=== PATIENT | female | born 1970 | race Caucasian/White ===

== ENCOUNTER 2020-04-13 00:43 | Emergency (ER) | payer OTHER, SELFPAY ==
--- NOTE | ~2020-04-13 | XR_ITS ---
XR foot RT min 3V 04/13/2020 01:22 Indication: Right foot pain Procedure: 4 views right foot Comparison: 04/07/2016 Findings: No acute fracture or traumatic malalignment. Lisfranc joint intact. No significant soft tis camelia abnormality. No radiopaque foreign bodies. Small degenerative calcaneal enthesophyte. Mild degene rative changes of the talonavicular joint. Impression: 1: No acute fracture. Reviewed, dictated and finalized at location A. ETIC TESTING TECHNICIAN Impression: 1: No acute fracture.
[2020-04-13 00:56] VITALS: BP 153/84; PULSE 87; RESP 18; TEMP 37.1; O2SAT 96
--- NOTE | 2020-04-13 00:59 | ED.GENADULT ---
HPI - General Adult General Chief complaint: Extremity Injury, Lower Stated complaint: injury to right foot Time Seen by Provider: 04/13/20 00:46 Source: RN notes reviewed History of Present Illness HPI narrative: Patient presents to emergency department from home for right foot pain. Patient states this evening her foot had been stuck in a bag and she tried to free it from the bag and kicking her foot out had kicked a metal bed frame. States his pain is across the top of the right foot as well as around the base of the fifth toe with swelling and ecchymosis present. States she took ibuprofen approximately 2 hours ago drove her self to the emergency department she denies any other trauma or injury denies any numbness or tingling Related Data Home Medications Medication Instructions Recorded Confirmed amlodipine 2.5 mg tablet 2.5 mg PO DAILY 04/09/19 citalopram 10 mg tablet 10 mg PO DAILY 04/09/19 ibuprofen 200 mg tablet 200 mg PO Q6H PRN 04/09/19 trazodone 50 mg tablet 50 mg PO BID 04/09/19 Allergies Allergy/AdvReac Type Severity Reaction Status Date / Time NSAIDS (Non-Steroidal Allergy Unknown UNKNOWN Verified 04/13/20 00:46 Anti-Inflamma Review of Systems Review of Systems: Narrative: Gen.: Denies fevers or chills Musculoskeletal: See HPI Neuro: Denies numbness, tingling, weakness Skin: Denies rash Endo: Denies DM PMFSH Past Medical History Medical History (Updated 04/13/20 @ 01:22 by Yaron Sims DO) SLAP (superior glenoid labrum lesion) Family History Family History Father Family history of cataracts Hypertension Cerebrovascular accident Family history of coronary artery disease Grandparent Hypertension Family history of alcoholism Family history of congestive heart failure Diabetes mellitus Mother Hypertension Cerebrovascular accident Sibling Family history of attention deficit hyperactivity disorder (ADHD) Other Family history of malignant neoplasm Social History Social History Smoking status: Former smoker Smoking end date: 05/22/16 Alcohol intake: current Exam Narrative: Exam Narrative: APPEARANCE: No acute distress, nontoxic, resting in bed Eyes: EOMI HEENT: Normocephalic, atraumatic, RESPIRATORY: No respiratory distress MUSCULOSKELETAl: Tender palpation over dorsal aspect of right foot with no swelling or ecchymosis there is ecchymosis of the fifth toe with tenderness present, the remainders of the toes are normal appearance there is no tenderness of the ankle dorsalis pedis pulse 2+ neurovascular intact NEURO: Awake and alert. Following commands, speech normal, no focal deficits SKIN:: Warm, dry. Normal Color no rash or lesions Course Course Emergency Course: Discussed with patient results of workup and diagnosis. Discussed need for follow-up with primary care, proper use of medication, and reasons to return to the emergency department. Patient understands and agrees to current treatment plan Vital Signs Vital signs: Vital Signs Temperature 98.8 F 04/13/20 00:56 Pulse Rate 87 04/13/20 00:56 Respiratory Rate 18 04/13/20 00:56 Blood Pressure 153/84 H 04/13/20 00:56 Pulse Oximetry 96 04/13/20 00:56 Temperature 98.8 F 04/13/20 00:56 Pulse Rate 87 04/13/20 00:56 Respiratory Rate 18 04/13/20 00:56 Blood Pressure 153/84 H 04/13/20 00:56 Pulse Oximetry 96 04/13/20 00:56 Medical Decision Making Vital Signs Vital Signs: Vital Signs Temperature 98.8 F 04/13/20 00:56 Pulse Rate 87 04/13/20 00:56 Respiratory Rate 18 04/13/20 00:56 Blood Pressure 153/84 H 04/13/20 00:56 Pulse Oximetry 96 04/13/20 00:56 Temperature 98.8 F 04/13/20 00:56 Pulse Rate 87 04/13/20 00:56 Respiratory Rate 18 04/13/20 00:56 Blood Pressure 153/84 H 04/13/20 00:56 Pulse Oximetry 96 04/13/20 00:56 Im
[2020-04-13 02:05] VITALS: BP 165/93; PULSE 86; RESP 18; TEMP 36.6; O2SAT 95
== END 2020-04-13 02:07 | disposition home or self-care (01) ==
PROVIDERS: Emergency Provider Emergency Medicine; PCP Family Medicine
DX: S90.31XA Contusion of right foot, initial encounter (principal); Z87.891 Personal history of nicotine dependence; W22.03XA Walked into furniture, initial encounter
CPT/HCPCS: 73630; 99283

== ENCOUNTER 2020-05-27 18:12 | Emergency (ER) | payer OTHER, SELFPAY ==
--- NOTE | ~2020-05-27 | CT_ITS ---
EXAMINATION: CT cervical spine wo con EXAM DATE: 05/27/2020 18:51 INDICATION: Head injury. TECHNIQUE: Spiral CT of the cervical spine was performed without contrast. Axial images were reviewe d. Coronal and sagittal reformatted images were also reviewed. The dose-length product (DLP) for thi s examination was 375.85 mGy-cm. The exposure was tailored according to patient size (auto mA exposu re control), and iterative reconstruction (ASIR) was used as additional dose reduction technique. ere is no prior study for comparison. FINDINGS: There is no evidence of acute cervical fracture. The odontoid process is intact. Pre-dens space is normal. Prevertebral soft tissue is normal. There are no soft tissue abnormalities identi fied. There is no disc space widening or traumatic vertebral body subluxation suspected. The 20 A detailed level by level evaluation of spondylosis can be added as addendum if requested. IMPRESSION: 1. No acute cervical fracture. Reviewed, dictated and finalized at location A. LLARY SERVICES MANAGER
--- NOTE | ~2020-05-27 | CT_ITS ---
EXAMINATION: CT brain wo con EXAM DATE: 05/27/2020 18:51 INDICATION: Fall, headache. Head injury. TECHNIQUE: Spiral CT of the head was performed without contrast. Axial, coronal and sagittal images were reviewed. The dose-length product (DLP) for this examination was 605.33 mGy-cm. The exposure w as tailored according to patient size, and iterative reconstruction (ASIR) was used as additional dos e reduction technique. There is no prior study for comparison. FINDINGS: There is no acute intraparenchymal hemorrhage. No evidence of intraparenchymal brain mass lesion. No evidence of acute infarction. There is no mass effect or midline shift. The ventricles are normal in size. There are no extra-axial collections. There are no acute calvarial fractures. T he orbits are unremarkable. Left frontal subcutaneous gas, scalp laceration. The visualized sinuses and mastoid air cells are well aerated. IMPRESSION: 1. No acute intracranial findings. 2. Left frontal scalp laceration. Reviewed, dictated and finalized at location A. ICE VOLUNTEER COORDINATOR
[2020-05-27 18:27] VITALS: BP 222/105; PULSE 76; RESP 17; TEMP 36.8; O2SAT 97
[2020-05-27] MEDS: ACETAMINOPHEN 500 MG TABLET 1000 MG PO (18:34)
--- NOTE | 2020-05-27 18:48 | ED.HEATRA ---
HPI - Head Injury General Chief complaint: Wound/Laceration <LUCI Solomon Last Filed: 05/27/20 20:29> Stated complaint: fall, lac above left eye <LUCI Solomon Last Filed: 05/27/20 20:29> Time Seen by Provider: 05/27/20 18:13 <LUCI Solomon Last Filed: 05/27/20 20:29> Source: patient <LUCI Solomon Last Filed: 05/27/20 20:29> Mode of arrival: ambulatory <LUCI Solomon Last Filed: 05/27/20 20:29> Limitations: no limitations <LUCI Solomon Last Filed: 05/27/20 20:29> History of Present Illness HPI Narrative: Patient is a 49-year-old male who presents to emergency department for evaluation of head injury that occurred just prior to arrival patient fell back in a chair and had a heavy piece of metal fall onto the face striking the head has since felt nauseous denies loss of consciousness and notes severe headache and nausea also noting neck pain patient has not taken anything for symptoms on arrival is resting in mild pain distress patient has laceration to the left brow patient notes her tetanus to be up-to-date <LUCI Solomon Last Filed: 05/27/20 20:29> Related Data Home medications: Home Medications Medication Instructions Recorded Confirmed amlodipine 2.5 mg tablet 2.5 mg PO DAILY 04/09/19 citalopram 10 mg tablet 10 mg PO DAILY 04/09/19 ibuprofen 200 mg tablet 200 mg PO Q6H PRN 04/09/19 trazodone 50 mg tablet 50 mg PO BID 04/09/19 <LUCI Solomon Last Filed: 05/27/20 20:29> Allergies/Adverse reactions: Allergies Allergy/AdvReac Type Severity Reaction Status Date / Time NSAIDS (Non-Steroidal Allergy Unknown UNKNOWN Verified 05/27/20 18:31 Anti-Inflamma <LUCI Solomon Last Filed: 05/27/20 20:29> Review of Systems Review of Systems: All systems reviewed & are unremarkable except as noted in HPI and below <LUCI Solomon Last Filed: 05/27/20 20:29> PMFSH Past Medical History Medical History: Medical History (Updated 05/27/20 @ 20:29 by Rickey Titus PA-C) Diabetes mellitus SLAP (superior glenoid labrum lesion) <Rickey Titus PA-C - Last Filed: 05/27/20 20:29> Family History Family History: Family History Father Family history of cataracts Hypertension Cerebrovascular accident Family history of coronary artery disease Grandparent Hypertension Family history of alcoholism Family history of congestive heart failure Diabetes mellitus Mother Hypertension Cerebrovascular accident Sibling Family history of attention deficit hyperactivity disorder (ADHD) Other Family history of malignant neoplasm <Rickey Titus PA-C - Last Filed: 05/27/20 20:29> Social History Social History: Social History (Updated 05/27/20 @ 18:51 by Rickey Titus PA-C) Smoking status: Current every day smoker Smoking end date: 05/22/16 Alcohol intake: current Gender identity (if verbalized by the patient): Female <LUCI Solomon Last Filed: 05/27/20 20:29> Exam Narrative: Exam Narrative: GENERAL: Well-appearing, well-nourished, and in no acute distress. HEAD: Normocephalic, contusions of the forehead and left brow with small half centimeter linear laceration to the left brow EYES: PERRLA and EOMI. ENT: Nares clear, no rhinorrhea or epistaxis. Mucous membranes moist. NECK: Supple. No adenopathy or masses. CHEST: Clear to auscultation. No respiratory distress. No wheezes rales or rhonchi HEART: Regular rate and rhythm. No murmur heard. EXTREMITIES: Normal range of motion. No edema. C-spine tenderness to palpation no thoracic or lumbar tenderness SKIN: Warm, dry, no rash. NEURO: No focal deficits. Alert and oriented x3. Cranial nerves II through XII grossly intact. Normal speech PSYCH: Normal mood and affect. <Rickey Titus PA-C - Last
[2020-05-27 19:06] VITALS: BP 190/90; PULSE 69; RESP 15; O2SAT 98
[2020-05-27 20:40] VITALS: BP 168/72; PULSE 68; RESP 16; O2SAT 99
== END 2020-05-27 20:41 | disposition home or self-care (01) ==
PROVIDERS: Emergency Provider Emergency Medicine; PCP Family Medicine
DX: S01.112A Laceration without foreign body of left eyelid and periocular area, initial encounter (principal); S00.83XA Contusion of other part of head, initial encounter; S16.1XXA Strain of muscle, fascia and tendon at neck level, initial encounter; E11.9 Type 2 diabetes mellitus without complications; F17.200 Nicotine dependence, unspecified, uncomplicated; W20.8XXA Other cause of strike by thrown, projected or falling object, initial encounter
CPT/HCPCS: 12011; 70450; 72125; 99284; A9270

== ENCOUNTER → 2021-03-24 09:11 | Outpatient (CLI) | payer OTHER, SELFPAY ==
[2021-03-24 17:30] LABS: SARS-CoV-2 RNA PCR Negative
== END ==
PROVIDERS: PCP Family Medicine; Visit Provider Family Medicine
DX: R05.9 Cough, unspecified (principal); Z20.822 Contact with and (suspected) exposure to COVID-19
CPT/HCPCS: C9803; U0003; U0005

== ENCOUNTER 2021-10-01 15:44 | Emergency (ER) | payer OTHER, SELFPAY ==
--- NOTE | ~2021-10-01 | XR_ITS ---
EXAMINATION: XR lumbar spine 2-3V DATE: 10/01/2021 16:10 INDICATION: Low back pain. TECHNIQUE: 3 views of lumbar spine were obtained. COMPARISON: Lumbar spine radiograph 11/17/2010 FINDINGS: There is 6 degrees levocurvature of lumbar spine. Vertebral body heights are normal. There is mildly decreased disc height at L1-L2 and L2-L3. There are endplate osteophytes at multiple levels . There is multilevel mild facet joint osteoarthritis. IMPRESSION: 1. Mild lumbar spondylosis. Reviewed, dictated and finalized at location A. IMPRESSION: 1. Mild lumbar spondylosis.
[2021-10-01 15:49] VITALS: BP 183/102; PULSE 96; RESP 16; TEMP 36.3; O2SAT 100
--- NOTE | 2021-10-01 15:50 | ED.BACK ---
HPI - Back Pain/Injury General Chief Complaint: Back Pain/Injury Stated Complaint: BACK PAIN Time Seen by Provider: 10/01/21 15:50 Source: patient and RN notes reviewed Mode of arrival: ambulatory Limitations: no limitations History of Present Illness HPI Narrative: 51-year-old female presented for complaint of mid lower back pain for at least 2 weeks. Denies injury. She states she has pain with sitting, standing, laying etc. Pain is described as sharp, constant, rates 8 out of 10. She endorses a history of diabetes and takes gabapentin for neuropathy, also taking Tylenol and ibuprofen without relief in symptoms. She denies saddle paresthesia, numbness, tingling, or weakness of the lower extremities. She states she has been walking differently but attributes it to the pain. Denies loss of bowel or bladder. History of cervical and ovarian cancer Related Data Home Medications Medication Instructions Recorded Confirmed amlodipine 2.5 mg tablet 2.5 mg PO DAILY 04/09/19 citalopram 10 mg tablet 10 mg PO DAILY 04/09/19 trazodone 50 mg tablet 50 mg PO BID 04/09/19 alprazolam 10/01/21 gabapentin 10/01/21 Allergies Allergy/AdvReac Type Severity Reaction Status Date / Time NSAIDS (Non-Steroidal Allergy Unknown UNKNOWN Verified 05/27/20 18:31 Anti-Inflamma Review of Systems Review of Systems: CONSTITUTIONAL: Denies body aches, fever, chills, or sweats. EYES: Denies visual changes, redness, or discharge. ENT: Denies rhinorrhea, congestion, sore throat, or otalgia. CARDIOVASCULAR: Denies chest pain, palpitations, or edema. RESPIRATORY: Denies cough or dyspnea. GASTROINTESTINAL: Denies abdominal pain, nausea, vomiting, or diarrhea. GENITOURINARY: Denies dysuria or hematuria. SKIN: Denies rash, itching, or wounds. MUSCULOSKELETAL: Denies myalgia. NEUROLOGIC: denies numbness, tingling, or weakness, dizziness All systems reviewed & are unremarkable except as noted in HPI and below PMFSH Past Medical History Medical History Diabetes mellitus SLAP (superior glenoid labrum lesion) Family History Family History Father Family history of cataracts Hypertension Cerebrovascular accident Family history of coronary artery disease Grandparent Hypertension Family history of alcoholism Family history of congestive heart failure Diabetes mellitus Mother Hypertension Cerebrovascular accident Sibling Family history of attention deficit hyperactivity disorder (ADHD) Other Family history of malignant neoplasm Social History Social History Smoking status: Current every day smoker Smoking end date: 05/22/16 Alcohol intake: current Gender identity (if verbalized by the patient): Female Comments At time of signature, I have reviewed and agree with nursing past medical, surgical, social and family history unless otherwise noted. Please see nursing chart for further information. There is no relevant family history pertinent to the presenting complaint Exam Narrative: GENERAL: Well-appearing, appears in pain HEAD: Normocephalic, atraumatic. EYES: EOMI. ENT: Mucous membranes pink and moist. No rhinorrhea. NECK: Normal AROM. Supple. CHEST: No respiratory distress. Clear to auscultation. HEART: Regular rate and rhythm. No murmur appreciated. Normal peripheral pulses. ABDOMEN: Soft, nontender, nondistended, normal active bowel sounds. MUSCULOSKELETAL: No bony tenderness. EXTREMITIES: Normal range of motion. No edema. SKIN: Warm, dry, no rash. Capillary refill normal. Normal skin turgor. NEURO:No vertebral point tenderness to L-spine, endorses tenderness to paraspinal region of L-spine. No focal deficits. Alert and oriented x3. Strength 5/5 bilateral lower extremities. Reflexes 2+ patellar. Heel to melendez intact bilaterally. A
[2021-10-01 16:38] VITALS: BP 180/108
== END 2021-10-01 16:39 | disposition home or self-care (01) ==
PROVIDERS: Emergency Provider Nurse Practitioner Family; PCP Family Medicine
DX: M54.50 Low back pain, unspecified (principal); F17.200 Nicotine dependence, unspecified, uncomplicated; E11.9 Type 2 diabetes mellitus without complications; Z85.41 Personal history of malignant neoplasm of cervix uteri; Z85.43 Personal history of malignant neoplasm of ovary
CPT/HCPCS: 72100; 99213; G0463

== ENCOUNTER 2025-01-01 14:42 | Emergency (ER) | payer OTHER, SELFPAY ==
--- NOTE | ~2025-01-01 | XR_ITS ---
HISTORY: estuardo hip pain COMPARISON: None TECHNIQUE: 2 views of the bilateral hips along with an AP view of the pelvis FINDINGS: No acute fracture or dislocation is identified. Superior lateral sclerosis of the bilateral femoral acetabular joint spaces (left greater than right) are present consistent with osteoarthritis. Degenerative disease within the visualized portion of the lower lumbar spine. IMPRESSION: Degenerative disease, without acute fracture. Reviewed, dictated and finalized at location A.
--- NOTE | ~2025-01-01 | CT_ITS ---
EXAMINATION: CT thoracic lumbar wo con DATE: 01/01/2025 16:08 CDT INDICATION: Mid back pain TECHNIQUE: Computed tomography (CT) of the lumbar spine and thoracic spine was performed without intr avenous contrast. The dose-length product was 646.31 mGy-cm. COMPARISON: None available FINDINGS: Thoracic and lumbar vertebral body heights are within normal limits. No compression fracture. Mild de generative change scattered throughout the thoracic and lumbar spine. Evaluation of the spinal canal contents and bilateral neuroforamen is limited due to CT technique. Mi ld levoconvex curvature of the lumbar spine. IMPRESSION: 1. No compression fracture identified in the thoracic or lumbar spine. 2. Mild degenerative change scattered throughout the thoracic and the lumbar spine. If symptoms persist or worsen, consider an MRI for further assessment. Reviewed, dictated and finalized at location A. IMPRESSION: 1. No compression fracture identified in the thoracic or lumbar spine. 2. Mild degenerative change scattered throughout the thoracic and the lumbar sp ine. If symptoms persist or worsen, consider an MRI for further assessment.
--- OUTSIDE RECORDS SUMMARY | 2025-01-01 14:45 | XMS_ITS | Clinical Summary ---
Author Organization [facility] Address [address] [place] [id number] Care Team Providers Care Development Chemist Name Role Phone Camila Lake MD Primary Care Provider [phone] Social History Tobacco Use Types Packs/Day Years Used Date Smoking Tobacco: Never Assessed Comments Unknown Sex and Gender Information Value Date Recorded Sex Assigned at Not on file Legal Sex Female 4:47 PM CDT Gender Identity Not on file Sexual Orientation Not on file Last Filed Vital Signs Vital Sign Reading Time Taken Comments Blood Pressure 160/100 03/02/2018 3:01 PM CDT Pulse 87 03/02/2018 3:01 PM CDT Temperature - - Respiratory Rate - - Oxygen Saturation - - Inhaled Oxygen Concentration - - Weight 93.4 kg (206 lb) 02/14/2018 4:05 PM CDT Height 162.6 cm (5' 4) 02/14/2018 4:05 PM CDT Body Mass Index 35.36 02/14/2018 4:05 PM CDT Plan of Treatment Health Maintenance Due Date Last Done Comments Cervical Cancer Screening Pa p Smear (Age 30 to 64) Every 3 Years 1970 Colorectal Cancer Screening Colonoscopy (10 Years) 1970 Annual Physical 1973 Hepatitis C 1988 DTaP, Tdap and Td Vaccines ( 1 - Tdap) 1989 Hepatitis B Vaccines (1 of 3 - 19+ 3-dose series) 1989 Cervical Cancer Screening Pa p with HPV Testing (Age 30 to 64) Every 5 Years 2000 Cervical Cancer Screening with HPV 2000 Mammogram Screening 2010 Pneumococcal Vaccine: 50+ Ye ars (1 of 1 - PCV) 2020 Zoster Vaccines (1 of 2) 2020 COVID-19 Vaccine (1 - 2023-2 5 season) 2024 Meningococcal B Vaccine Aged Out No l onger eligible based on patient's age to complete this topic Meningococcal Vaccine Aged Out No christophe rajesh eligible based on patient's age to complete this topic RSV Immunizations Under 20 Months Aged Out No longer eligible based on patient's age to complete this topic Insurance [facility] Care Teams Development Chemist Relationship Specialty Start Date End Date Camila Lake MD [address] [facility] [address] [place] [address] PCP - General FAMILY PRACTICE 03/02/18
--- OUTSIDE RECORDS SUMMARY | 2025-01-01 14:45 | XMS_ITS | Clinical Summary ---
Author Organization [facility] Address [address] [place] [address] Care Team Providers Care Comparative Sociology Professor Name Role Phone Dario Del aCruz MD Primary Care Provider Konstantin Bellamy MD Unavailable [phone] Allergies No known active allergies Medications cyclobenzaprine (FLEXERIL) 10 MG Tablet Take 10 mg by mouth. 10/28/2024 Active Trulicity 0.75 MG/0.5ML Solution Auto-injector 0.75 mg. 11/05/2024 Activ e escitalopram (LEXAPRO) 10 MG Tablet Take 10 mg by mouth daily. 10/31/2024 Active hydrOXYzine (ATARAX) 10 MG Tablet Take 10 mg by mouth. 10/31/2024 Active Lantus SoloStar 100 UNIT/ML Solution Pen-injector 100 Units. 11/05/2024 Activ e Insulin Lispro, 1 Unit Dial, 100 UNIT/ML Solution Pen-injector 100 Units. 11/05/2024 Activ e traZODone (DESYREL) 50 MG Tablet Take 50 mg by mouth nightly. 11/04/2024 Active Encounters Date Type Department Care Team Description 11/28/2024 Telephone [facility] - Cardiology - [address] [place] [address] Jeanie Campos APRN, DYEHOUSE WORKER from Last 3 Months Social History Tobacco Use Types Packs/Day Years Used Date Smoking Tobacco: Never Assessed Comments Unknown Sex and Gender Information Value Date Recorded Sex Assigned at Not on file Legal Sex Female 1:35 PM CDT Gender Identity Not on file Sexual Orientation Not on file Plan of Treatment Health Maintenance Due Date Last Done Comments Hepatitis C Virus (HCV) Screening 1970 Mammogram 1970 TdaP Immunization 1970 Hepatitis B Immunization (1 of 3 - 19+ 3-dose series) 1989 Pap Smear 07/30/1991 Cervical Cancer Screening (CCS) 2000 HPV/Cotest 2000 Cologuard 07/30/2015 Colonoscopy 07/30/2015 Colorectal Cancer Screening 07/30/2015 Immunochemical Fecal Occult Blood 07/30/2015 Pneumococcal Immunization (5 0+ years) (1 of 1 - PCV) 2020 Zoster Immunization (1 of 2) 2020 SARS-COV-2 Immunization (3 - 2023- season) 2024 01/03/2021, 12/13/2020 Influenza Immunization (#1) 2025 Respiratory Syncytial Virus (RSV) Immunization (Adult) (1 - 1-dose 75+ series) 2045 Human Papillomavirus (HPV) Immunization Aged Out No longer eligible b ased on patient's age to complete this topic Meningococcal Immunization (ACWY) Aged Out No longer eligible b ased on patient's age to complete this topic Rotavirus Immunization Aged Out No lo nger eligible based on patient's age to complete this topic Insurance MEDICAID [employer] Care Teams Comparative Sociology Professor Relationship Specialty Start Date End Date Dario Dela Cruz MD [address] [place] [address] PCP - General Internal Medicine 10/29/24 Konstantin Bellamy MD [address] [place] [phone] Consulting Physician Oncology 10/29/24
--- OUTSIDE RECORDS SUMMARY | 2025-01-01 14:45 | XMS_ITS | Clinical Summary ---
Author Organization [facility] Address [address] [facility] [place] [address] Care Team Providers Care Human Services Instructor Name Role Phone Valentin Pacheco MD Primary Care Provider [phone] Source Comments [facility],non-owned Affiliates and Associated Physician Practices is amultiple site organization consisting of ambulatory clinics and hospital sitesin [place], [place], [place] and [place]. This disclosure is being madepursuant to the Care Everywhere program and may not contain all information available regarding this patient. Last updated 18.[facility] Allergies No known active allergies Medications * Be aware that medications may not be up to date on this document. Alwaysverify current medications with the patient. citalopram (CELEXA) 40 MG tablet Take 40 mg by mouth once daily Active traZODone (DESYREL) 50 MG tablet Take 50 mg by mouth at bedtime Active ALPRAZolam (XANAX) 0.5 MG tablet Take 0.5 mg by mouth 3 times daily as needed for Anxiety Active losartan (COZAAR) 50 MG tablet Take 50 mg by mouth once daily Active HYDROcodone-alina taminophen (NORCO) 5-325 MG tablet Take 1 Tab by mouth every 6 hours as needed for Pain 10 Tab 03/19/2016 Active Misc. Devices (CRUTCHES) Use as directed 1 Each 03/19/2016 Active Social History Tobacco Use Types Packs/Day Years Used Date Smoking Tobacco: Never Assessed Comments Unknown Sex and Gender Information Value Date Recorded Sex Assigned at Not on file Legal Sex Female 6:45 PM CDT Gender Identity Not on file Sexual Orientation Not on file Last Filed Vital Signs Vital Sign Reading Time Taken Comments Blood Pressure 115/60 03/19/2016 6:45 PM CDT Pulse 75 03/19/2016 6:45 PM CDT Temperature 36.9 C (98.4 F) 03/19/2016 6:45 PM CDT Respiratory Rate 18 03/19/2016 6:45 PM CDT Oxygen Saturation 98% 03/19/2016 6:4 5 PM CDT Inhaled Oxygen Concentration - - Weight 77.1 kg (170 lb) 03/19/2016 6:45 PM CDT Pt unable to stand Height 162.6 cm (5' 4) 03/19/2016 6:45 PM CDT Body Mass Index 29.18 03/19/2016 6:45 PM CDT Plan of Treatment Health Maintenance Due Date Last Done Comments COLOGUARD (AGES 45-75) - COL ON CA SCREENING 1970 COLON MONITORING 1970 COLONOSCOPY - COLON CA SCREENING 1970 CT COLONOGRAPHY - COLON CA SCREENING 1970 Colorectal Cancer Screening 1970 FIT - COLON CA SCREENING 1970 FLEX SIG - COLON CA SCREENING 1970 LIPID TESTING 1970 MAMMOGRAM 1970 HIV SCREENING 1985 HEPATITIS C SCREENING 07/24/1988 DTAP/TDAP/TD VACCINES (1 - Tdap) 1989 HEPATITIS B VACCINE (1 of 3 - 19+ 3-dose series) 1989 PNEUMOCOCCAL VACCINE 50+ (1 of 1 - PCV) 2020 ZOSTER VACCINE (1 of 2) 2020 COVID-19 VACCINE (1 - 2023-2 5 season) 2024 DEPRESSION SCREENING 05/22/2024 INFLUENZA VACCINE (#1) 2025 HIB VACCINE Aged Out No longer eligi ble based on patient's age to complete this topic HPV VACCINE Aged Out No longer eligi ble based on patient's age to complete this topic MENINGOCOCCAL (Group B) VACC INE SHARED DECISION-MAKING Aged Out No longer eligibl e based on patient's age to complete this topic MENINGOCOCCAL GROUPS A/C/Y/W VACCINE Aged Out No longer eligible b ased on patient's age to complete this topic Insurance [facility] Care Teams Human Services Instructor Relationship Specialty Start Date End Date Valentin Pacheco MD PCP - General Family Medicine 03/19/16
--- OUTSIDE RECORDS SUMMARY | 2025-01-01 14:45 | XMS_ITS | Clinical Summary ---
Author Organization [employer] [facility] Address [address] [place] [address] Care Team Providers Care Maitre D Name Role Phone Valentin Pacheco MD Primary Care Provider Unavail able Allergies No known active allergies Medications amLODIPine (NORVASC) 5 mg tablet Take 1 Tablet (5 mg) by mouth daily. 30 Tablet 1 07/25/2015 Active hydrochlorothia zide (HYDRODIURIL) 12.5 mg tablet Take 12.5 mg by mouth daily. Active losartan (COZAAR) 50 mg tablet Take 1 Tablet (50 mg) by mouth daily. 30 Tablet 5 11/04/2015 Active citalopram (CeleXA) 40 mg tablet Take 1 Tablet (40 mg) by mouth daily at bedtime. 30 Tablet 6 01/27/2016 Active penicillin V potassium (VEETID) 500 mg tablet Take 1 Tablet (500 mg) by mouth 3 times daily. 30 Tablet 0 02/18/2016 Active ALPRAZolam (XANAX) 0.5 mg tablet TAKE ONE TABLET BY MOUTH AT BEDTIME NEEDED FOR ANXIETY 40 Tablet 1 06/13/2016 Active traZODone (DESYREL) 50 mg tablet Take 1 Tablet (50 mg) by mouth daily at bedtime. 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 Gender Identity Not on file Sexual Orientation Not on file Last Filed Vital Signs Vital Sign Reading Time Taken Comments Blood Pressure 132/70 02/18/2016 3:32 PM CDT Pulse 74 02/18/2016 3:32 PM CDT Temperature 36.8 C (98.3 F) 07/25/2015 9:02 PM CONSTRUCTION EQUIPMENT OPERATOR Respiratory Rate 20 07/25/2015 9:02 PM CONSTRUCTION EQUIPMENT OPERATOR Oxygen Saturation 98% 07/26/2015 12:01 AM CONSTRUCTION EQUIPMENT OPERATOR Inhaled Oxygen Concentration - - Weight 81.6 kg (180 lb) 02/18/2016 3:32 PM CDT Height 162.6 cm (5' 4) 02/18/2016 3:32 PM CDT Body Mass Index 30.9 02/18/2016 3:32 PM CDT Plan of Treatment Health Maintenance Due Date Last Done Comments DTAP/TDAP/TD VACCINES (1 - Tdap) 1989 HEPATITIS B VACCINES (1 of 3 - 19+ 3-dose series) 07/20 HPV/Cotest (21-29) 07/30/1991 CERVICAL CANCER SCREENING 2000 HPV/Cotest (30-65) 2000 PAP SMEAR 2000 BREAST CANCER SCREENING 2010 COLORECTAL SCREENING 07/30/2015 Colorectal Cancer Screening 07/30/2015 FIT-DNA Q 3 years 07/30/2015 FIT/FOBT Q 1 year 07/30/2015 Flex Sig/CT Colonography Q 5 years 07/30/2015 ZOSTER VACCINE (1 of 2) 2020 INFLUENZA VACCINE (#1) [address]24 [place] [address] FORMERLY [facility] OPEN ACCESS HMO Care Teams Maitre D Relationship Specialty Start Date End Date Valentin Pacheco MD PCP - General Family Practice 07/06/15
[2025-01-01 14:47] VITALS: BP 245/106; PULSE 89; RESP 16; TEMP 36.8; O2SAT 98
--- NOTE | 2025-01-01 14:57 | ED.BACK ---
HPI - Back Pain/Injury General Chief Complaint: Back Pain/Injury <Sagrario OneillMagdy Jarrell, TETRYL BOILING TUB OPERATOR - Last Filed: 01/01/25 16:23> Stated Complaint: BACK PAIN <Sagrariofred Jarrell TETRYL BOILING TUB OPERATOR - Last Filed: 01/01/25 16:23> Time Seen by Provider: 01/01/25 14:55 <Sagrariofred Jarrell TETRYL BOILING TUB OPERATOR - Last Filed: 01/01/25 16:23> Focused HPI: Patient is a 54-year-old female who presents to the ER with severe back pain. She reports the pain started approximately 2-3 weeks ago but has progressively gotten worse. Patient is unsure whether she injured her back. She reports ?I think this is more muscle than bones. Patient also endorses bilateral hip pain and bilateral femur pain. She endorses a history of high blood pressure and diabetes, but reports she has not taken her medications today. Patient also endorses right foot numbness that has been present for 2-3 months. GENERAL: Well-appearing, well-nourished, and in acute distress d/t pain. HEAD: Normocephalic, atraumatic. CHEST: Clear to auscultation. ?No respiratory distress. HEART: Regular rate and rhythm.? NEURO: ?Alert and oriented x3. Patient screened in triage and initial orders placed.? ?Additional care and disposition to be based upon?diagnostic testing and treatment. <Sagrariofred Jarrell, TETRYL BOILING TUB OPERATOR - Last Filed: 01/01/25 16:23> Focused HPI: Patient is a 54-year-old female who presents to the ER with severe back pain. She reports the pain started approximately 2-3 weeks ago but has progressively gotten worse. Patient is unsure whether she injured her back. She reports ?I think this is more muscle than bones. Patient also endorses bilateral hip pain and bilateral femur pain. She endorses a history of high blood pressure and diabetes, but reports she has not taken her medications today. Patient also endorses right foot numbness that has been present for 2-3 months. GENERAL: Well-appearing, well-nourished, and in acute distress d/t pain. HEAD: Normocephalic, atraumatic. CHEST: Clear to auscultation. ?No respiratory distress. HEART: Regular rate and rhythm.? NEURO: ?Alert and oriented x3. Patient screened in triage and initial orders placed.? ?Additional care and disposition to be based upon?diagnostic testing and treatment. <Shreya Pleitez PA-C - Last Filed: 01/01/25 23:34> Source: patient <Shreya Pleitez PA-C - Last Filed: 01/01/25 23:34> Mode of arrival: ambulatory <Shreya Pleietz PA-C - Last Filed: 01/01/25 23:34> Limitations: no limitations <Shreya Pleitez PA-C - Last Filed: 01/01/25 23:34> History of Present Illness HPI Narrative: Agree with above HPI. Patient reports pain has been ongoing for 2 months. She has not taken anything for the pain as she reports Tylenol and ibuprofen do not help her. Worse with movement. Denies bowel or bladder incontinence, saddle anesthesia. Patient's blood pressure was noted to be very elevated here. She reports she is on antihypertensive medication, but has not taken this in several days. Per med rec, patient has previously been on losartan, but this does not appear to have been filled since January of 2024. Denies chest pain, shortness breath, headache, blurry vision, dizziness, lightheadedness. <Shreya Pleitez PA-C - Last Filed: 01/01/25 23:34> Related Data Home Medications: Home Medications ?Medication ?Instructions ?Recorded ?Confirmed ?Last Taken ?Type amlodipine 2.5 mg tablet 2.5 mg PO DAILY 04/09/19 Unknown History citalopram 10 mg tablet (Celexa) 10 mg PO DAILY 04/09/19 Unknown History trazodone 50 mg tablet 50 mg PO BID 04/09/19 Unknown History alprazolam 0.5 mg tablet 10/01/21 Unknown History gabapentin 300 mg capsule 10/01/21 Unknown History <Sagrario Jarrell APRN - Last Filed: 01/01/25 16:23> Allergies/Adverse Reactions: Allergies Allergy/AdvReac Type Severity Reaction Status Date / Time No Known Allergies Allergy Verified 01/01/25 14:51 <Sagrario Jarrell APRN - Last Filed: 01/01/25 16:23> Review of Systems Review of Systems: All systems reviewed & are unremarkable except as noted in HPI. <Shreya Pleitez PA-C - Last Filed: 01/01/25 23:34> All systems reviewed & are unremarkable except as noted in HPI and below <Shreya Pleitez PA-C - Last Filed: 01/01/25 23:34> PMFSH Past Medical History Medical History: Medical History Diabetes mellitus SLAP (superior glenoid labrum lesion) <Sagrario Jarrell APRN - Last Filed: 01/01/25 16:23> Family History Family History: Family History Father Family history of cataracts Hypertension Cerebrovascular accident Family history of coronary artery disease Grandparent Hypertension Family history of alcoholism Family history of congestive heart failure Diabetes mellitus Mother Hypertension Cerebrovascular accident Sibling Family history of attention deficit hyperactivity disorder (ADHD) Other Family history of malignant neoplasm <Sagrario Jarrell APRN - Last Filed: 01/01/25 16:23> Social History Social History: Social History Smoking status: Current every day smoker Smoking end date: 05/22/16 Alcohol intake: current Gender identity (if verbalized by the patient): Female <Sagrario Jarrell APRN - Last Filed: 01/01/25 16:23> Exam Narrative: GENERAL: Well appearing, well-nourished, non-toxic, in no acute distress. HEAD: Normocephalic, atraumatic. EYES: L eye strabismus. PERRL/EOMI RESPIRATORY: Airway patent, respirations nonlabored. Clear to auscultation bilaterally, no rales, rhonchi, wheezing. CARDIOVASCULAR: Regular rate and rhythm without murmurs, rubs, or gallops. Peripheral pulses intact. ABDOMINAL: Soft, no tenderness throughout abdomen, nondistended. Normoactive BS. MUSCULOSKELETAL: Moves all extremities. No gross deformities. Diffuse tenderness throughout lumbosacral region. No significant midline spinal tenderness. No palpable bony deformities or step offs. Sensation intact. SKIN: Warm, dry, normal color. NEURO: A&O X3. Speech clear. Cranial nerves II-XII grossly intact. Steady gait. No ataxic movements. No focal deficits. PSYCHIATRIC: Appropriate mood and affect. Normal interaction. <Shreya Pleitez PA-C - Last Filed: 01/01/25 23:34> Course Vital Signs Vital signs: Vital Signs Temperature 98.2 F 01/01/25 14:47 Pulse Rate 89 01/01/25 14:47 Respiratory Rate 16 01/01/25 14:47 Blood Pressure 245/106 H 01/01/25 14:47 Pulse Oximetry 98 01/01/25 14:47 Oxygen Delivery Room Air 01/01/25 14:47 Temperature 98.2 F 01/01/25 14:47 Pulse Rate 89 01/01/25 14:47 Respiratory Rate 16 01/01/25 14:47 Blood Pressure 222/118 H 01/01/25 21:14 Pulse Oximetry 98 01/01/25 14:47 Oxygen Delivery Room Air 01/01/25 14:47 <Sagrario Jarrell, TETRYL BOILING TUB OPERATOR - Last Filed: 01/01/25 16:23> Vital Signs Temperature 98.2 F 01/01/25 14:47 Pulse Rate 89 01/01/25 14:47 Respiratory Rate 16 01/01/25 14:47 Blood Pressure 245/106 H 01/01/25 14:47 Pulse Oximetry 98 01/01/25 14:47 Oxygen Delivery Room Air 01/01/25 14:47 Temperature 98.2 F 01/01/25 14:47 Pulse Rate 89 01/01/25 14:47 Respiratory Rate 16 01/01/25 14:47 Blood Pressure 222/118 H 01/01/25 21:14 Pulse Oximetry 98 01/01/25 14:47 Oxygen Delivery Room Air 01/01/25 14:47 <Shreya Pleitez PA-C - Last Filed: 01/01/25 23:34> MDM - Back Pain/Injury MDM Narrative Medical decision making narrative: Patient presented to ED with 2 month history of lower back pain, worse with movement. Patient notably hypertensive upon arrival. She does have history of hypertension and does admit to being noncompliant with her medications. Initially told me that she had not taken her medications for the past 2 days, but later reported that she does not know the last time she actually took her medications or checked her blood pressure. She is asymptomatic regarding this. Denying any red flag symptoms. Denies chest pain, shortness of breath, headache, vision changes, dizziness, lightheadedness. She is neurologically intact otherwise. There is no evidence of cord compression or cauda equina. Symptoms seem most likely musculoskeletal, sciatica type picture. Laboratory studies were obtained with minimal leukocytosis of 12.2. CMP unremarkable. UA with 6-10 WBC, however patient denies urinary complaints. CT scan of thoracic and lumbar spine showing some degenerative changes, but no acute fracture or spinal malalignment. X-ray of bilateral hips/pelvis was also without acute fracture. Patient was given Toradol and prednisone in triage. Upon my evaluation, she is still reporting pain. She was given [place] and Robaxin. On re-evaluation, she is feeling much improved. Back pain is significantly improved. She has been ambulatory around the ED without issue. Remains neurologically intact. States she is ready to go home. Discussed likelihood of musculoskeletal etiology/muscular strain. No evidence to suggest symptoms are from GI or source. No abdominal pain, nausea, vomiting, diarrhea. Denies urinary complaints. There is trace amount of WBC on UA, this was sent for culture. Personal review of thoracic/lumbar spine CT does not show any obvious aortic pathology. Strong peripheral pulses. No weakness of extremities. Attempted to recheck patient's blood pressure after pain control. This was attempted multiple times with room blood pressure monitor and unable to obtain accurate reading. Patient becoming very frustrated. States she is just ready to go home. States she does not care about her blood pressure. States this is not why she is here. We did obtain a manual blood pressure which was very slightly improved from initial BP, but still notably elevated to 222/118. Patient remains asymptomatic regarding blood pressure. I advised that I would like to monitor her in the ED longer and did not feel comfortable discharging her with a blood pressure that elevated regardless that she was asymptomatic. Patient was initially agreeable, however was witnessed ambulating out of the facility prior to any further workup or being discharged. She was witnessed ambulating with a steady gait. She did not inform staff or myself that she was leaving. This will be considered an elopement. I did emphasize to patient during our conversations prior to her eloping that she needs to have very close follow-up with her primary care doctor and that she needs to be consistent with her medications. Patient was unable to tell me even what blood pressure medication she was supposed to be taking. She states she had other medications at home but was unable to tell me what these were even for. I did encourage patient to take accountability and control of her medical problems. Again, patient eloped from facility without further workup or BP management. <Shreya Pleitez PA-C - Last Filed: 01/01/25 23:34> Medical Records Attestation: I reviewed the patient's medical records. <Shreya Pleitez PA-C - Last Filed: 01/01/25 23:34> Lab Data Attestation: I reviewed the patient's lab results. <Shreya Pleitez PA-C - Last Filed: 01/01/25 23:34> Result diagrams: 01/01/25 15:02 01/01/25 15:02 <Sagrario Jarrell APRN - Last Filed: 01/01/25 16:23> Labs: Lab Results 01/01/25 01/01/25 01/01/25 Range/Units 15:02 15:15 17:30 WBC 12.2 H (4.5-10.0) K/mm3 RBC 5.59 H (4.2-5.4) M/mm3 Hgb 14.9 (12.0-15.0) g/dL Hct 47.0 (37.0-47.0) % MCV 84.1 (80-100) fl MCH 26.7 (26-34) pg MCHC 31.7 L (32-36) g/dl RDW 14.8 H (11.5-14.5) % Plt Count 350 (150-375) k/mm3 MPV 9.1 (7.4-10.4) fl Immature Gran % (Auto) Not Reportable Neut % (Auto) Not Reportable Lymph % (Auto) Not Reportable Treasure % (Auto) Not Reportable Eos % (Auto) Not Reportable Baso % (Auto) Not Reportable Lymph # (Auto) Not Reportable Treasure # (Auto) Not Reportable Eos # (Auto) Not Reportable Baso # (Auto) Not Reportable Abs Immat Gran (auto) Not Reportable Absolute Neuts (auto) Not Reportable Absolute Nucleated RBC Not Reportable Total Counted 100 Neutrophils % (Manual) 68 (46-73) % Band Neutrophils % 0 (0-6) % Lymphocytes % (Manual) 31.0 (18-44) % Eosinophils % (Manual) 1 (0-4) % Nucleated RBC % Not Reportable Abs Neuts (Manual) 8.29 H (1.3-6.7) K/mm3 Abs Lymphs (Manual) 3.78 (1.1-4.5) K/mm3 Absolute Eos (Manual) 0.12 (0.02-0.50) K/mm3 Platelet Estimate Adequate (Adequate) Hypochromasia 1+ Schistocytes None seen Sodium 138 (137-145) mmol/L Potassium 3.7 (3.4-5.0) mmol/L Chloride 103 (98-107) mmol/L Carbon Dioxide 24 (22-30) mmol/L Anion Gap 11 (4-12) mmol/L BUN 11 (7-17) mg/dL Creatinine 0.70 (0.7-1.0) mg/dL Estim Creat Clear Calc 65 ml/min Estimated GFR > 60 (59 - ) Glucose 182 H (65-110) mg/dL POC Capillary Glucose 189 H (65-105) mg/dl Calcium 9.7 (8.4-10.2) mg/dL Total Bilirubin 0.5 (0.2-1.3) mg/dL AST 18 (14-36) U/L ALT 11 (6-35) U/L Alkaline Phosphatase 96 (38-126) U/L Total Protein 8.6 H (6.3-8.2) g/dL Albumin 4.4 (3.5-5.1) g/dL Urine Color Yellow (Yellow) Urine Appearance Clear (Clear) Urine pH 7.0 (5.0-9.0) Ur Specific [place] 1.014 (1.001-1.035) Urine Protein 2+ H (Negative) mg/dL Urine Glucose (UA) Trace H (Negative) mg/dL Urine Ketones Negative (Negative) mg/dL Ur Blood (Man) Negative (Negative) Urine Nitrate Negative (Negative) Urine Bilirubin Negative (Negative) Urine Urobilinogen 1.0 (<2.0) mg/dL Leukocyte Esterase Rfl 1+ H (Negative) YVES/UL Urine RBC 0-2 (0-2) /hpf Urine WBC 6-10 H (0-3) /hpf Ur Squamous Epith Cells Few (Few) /hpf Urine Bacteria Rare /hpf Urine Casts 0-2 <Sagrario Jarrell, TETRYL BOILING TUB OPERATOR - Last Filed: 01/01/25 16:23> Lab Results 01/01/25 01/01/25 01/01/25 Range/Units 15:02 15:15 17:30 WBC 12.2 H (4.5-10.0) K/mm3 RBC 5.59 H (4.2-5.4) M/mm3 Hgb 14.9 (12.0-15.0) g/dL Hct 47.0 (37.0-47.0) % MCV 84.1 (80-100) fl MCH 26.7 (26-34) pg MCHC 31.7 L (32-36) g/dl RDW 14.8 H (11.5-14.5) % Plt Count 350 (150-375) k/mm3 MPV 9.1 (7.4-10.4) fl Immature Gran % (Auto) Not Reportable Neut % (Auto) Not Reportable Lymph % (Auto) Not Reportable Treasure % (Auto) Not Reportable Eos % (Auto) Not Reportable Baso % (Auto) Not Reportable Lymph # (Auto) Not Reportable Treasure # (Auto) Not Reportable Eos # (Auto) Not Reportable Baso # (Auto) Not Reportable Abs Immat Gran (auto) Not Reportable Absolute Neuts (auto) Not Reportable Absolute Nucleated RBC Not Reportable Total Counted 100 Neutrophils % (Manual) 68 (46-73) % Band Neutrophils % 0 (0-6) % Lymphocytes % (Manual) 31.0 (18-44) % Eosinophils % (Manual) 1 (0-4) % Nucleated RBC % Not Reportable Abs Neuts (Manual) 8.29 H (1.3-6.7) K/mm3 Abs Lymphs (Manual) 3.78 (1.1-4.5) K/mm3 Absolute Eos (Manual) 0.12 (0.02-0.50) K/mm3 Platelet Estimate Adequate (Adequate) Hypochromasia 1+ Schistocytes None seen Sodium 138 (137-145) mmol/L Potassium 3.7 (3.4-5.0) mmol/L Chloride 103 (98-107) mmol/L Carbon Dioxide 24 (22-30) mmol/L Anion Gap 11 (4-12) mmol/L BUN 11 (7-17) mg/dL Creatinine 0.70 (0.7-1.0) mg/dL Estim Creat Clear Calc 65 ml/min Estimated GFR > 60 (59 - ) Glucose 182 H (65-110) mg/dL POC Capillary Glucose 189 H (65-105) mg/dl Calcium 9.7 (8.4-10.2) mg/dL Total Bilirubin 0.5 (0.2-1.3) mg/dL AST 18 (14-36) U/L ALT 11 (6-35) U/L Alkaline Phosphatase 96 (38-126) U/L Total Protein 8.6 H (6.3-8.2) g/dL Albumin 4.4 (3.5-5.1) g/dL Urine Color Yellow (Yellow) Urine Appearance Clear (Clear) Urine pH 7.0 (5.0-9.0) Ur Specific [place] 1.014 (1.001-1.035) Urine Protein 2+ H (Negative) mg/dL Urine Glucose (UA) Trace H (Negative) mg/dL Urine Ketones Negative (Negative) mg/dL Ur Blood (Man) Negative (Negative) Urine Nitrate Negative (Negative) Urine Bilirubin Negative (Negative) Urine Urobilinogen 1.0 (<2.0) mg/dL Leukocyte Esterase Rfl 1+ H (Negative) YVES/UL Urine RBC 0-2 (0-2) /hpf Urine WBC 6-10 H (0-3) /hpf Ur Squamous Epith Cells Few (Few) /hpf Urine Bacteria Rare /hpf Urine Casts 0-2 <Shreya Pleitez PA-C - Last Filed: 01/01/25 23:34> Imaging Data Attestation: I personally reviewed and interpreted this imaging study as follows: <Shreya Pleitez PA-C - Last Filed: 01/01/25 23:34> Radiologist's impression: ITS Impressions Thoracic/Lumbar Spine CT 01/01/25 16:06 IMPRESSION: 1. No compression fracture identified in the thoracic or lumbar spine. 2. Mild degenerative change scattered throughout the thoracic and the lumbar spine. If symptoms persist or worsen, consider an MRI for further assessment. Hip/Pelvis X-Ray 01/01/25 18:33 IMPRESSION: Degenerative disease, without acute fracture. <Shreya Pleitez PA-C - Last Filed: 01/01/25 23:34> Discharge Plan Discharge Clinical Impression: Elevated blood pressure reading in office with diagnosis of hypertension, Noncompliance with medication regimen Strain of lumbar region Qualifiers: Encounter type: initial encounter Qualified Code(s): S39.012A - Strain of muscle, fascia and tendon of lower back, initial encounter <Sagrario Jarrell APRN - Last Filed: 01/01/25 16:23> Patient Disposition: Elopement After Seen by Prov <Sagrario Jarrell APRN - Last Filed: 01/01/25 16:23> Instructions: Antibiotic Form, Acute Low Back Pain (ED), Lower Back Exercises (ED) <Sagrario Jarrell APRN - Last Filed: 01/01/25 16:23> Patient Language: Icelandic <Sagrario Jarrell APRN - Last Filed: 01/01/25 16:23> Prescriptions: No Action alprazolam 0.5 mg tablet gabapentin 300 mg capsule cyclobenzaprine 10 mg tablet 10 mg PO TID PRN (Reason: muscle spasm) Qty: 15 0RF ibuprofen 800 mg tablet 800 mg PO TID PRN (Reason: pain) Qty: 15 0RF citalopram [Celexa] 10 mg tablet 10 mg PO DAILY trazodone 50 mg tablet 50 mg PO BID amlodipine 2.5 mg tablet 2.5 mg PO DAILY ibuprofen [IBU] 600 mg tablet 600 mg PO Q6H PRN (Reason: pain) Qty: 20 0RF <Sagrario Jarrell APRN - Last Filed: 01/01/25 16:23> Follow-up/Referrals: Shelby,Maryan Mcarthur MD [Non-Staff] - <Sagrario Jarrell APRN - Last Filed: 01/01/25 16:23>
[2025-01-01] MEDS: KETOROLAC (*BKC) 60 MG/2 ML VIAL IM (15:07)
[2025-01-01 15:11] LABS: Hematocrit 47.0 % (37.0-47.0); Hemoglobin 14.9 g/dL (12.0-15.0); Mean Corpuscular HGB Conc 31.7 g/dl (32-36); Mean Corpuscular Hemoglobin 26.7 pg (26-34); Mean Corpuscular Volume 84.1 fl (80-100); Platelet Count Result 350 k/mm3 (150-375); Red Blood Count 5.59 M/mm3 (4.2-5.4); White Blood Count 12.2 K/mm3 (4.5-10.0)
[2025-01-01 15:23] LABS: Alanine Aminotransferase 11 U/L (6-35); Albumin Level 4.4 g/dL (3.5-5.1); Alkaline Phosphatase 96 U/L (38-126); Anion Gap 11 mmol/L (4-12); Aspartate Amino Transferase 18 U/L (14-36); Bilirubin,Total 0.5 mg/dL (0.2-1.3); Blood Urea Nitrogen 11 mg/dL (7-17); Calcium 9.7 mg/dL (8.4-10.2); Carbon Dioxide 24 mmol/L (22-30); Chloride 103 mmol/L (98-107); Estimated CRCL calculation 65 ml/min; Estimated Glomerular Filt Rate > 60; Glucose 182 mg/dL (65-110); Potassium 3.7 mmol/L (3.4-5.0); Sodium 138 mmol/L (137-145); Total Protein 8.6 g/dL (6.3-8.2)
[2025-01-01 15:29] LABS: Add Urine Microscopic? YES; Appearance Urine Clear (Clear); Glucose Urine UA Trace mg/dL (Negative); Leukocyte Esterase Ur 1+ LEU/UL (Negative); Nitrate Urine Negative (Negative); Non Pathogenic Casts 0-2; Specific Grav Ur 1.014 (1.001-1.035)
[2025-01-01 15:32] LABS: Eosinophils Absolute Manual 0.12 K/mm3 (0.02-0.50); Eosinophils Percent Manual 1 % (0-4); Hypochromasia 1+; Lymphocytes Absolute Manual 3.78 K/mm3 (1.1-4.5); Lymphocytes Percent Manual 31.0 % (18-44); Neutrophils Percent Manual 68 % (46-73); Schistocytes None Seen; Total Cells Counted 100
[2025-01-01 15:33] LABS: Band Neutrophils Percent 0 % (0-6); Neutrophils Absolute Manual 8.29 K/mm3 (1.3-6.7)
--- NOTE | 2025-01-01 17:02 | PC.NURSE ---
Patient aware of elevated HTN and states I know and that is not why I am fucking here. Provider aware.
[2025-01-01] MEDS: HYDROcodone/acetaminophen (*CRX) 5-325 MG TABLET 1 TAB PO (18:16)
--- NOTE | 2025-01-01 20:49 | PC.NURSE ---
OSIEL Wheatley attempted to get a manual blood pressure on pt and she states it is broke and was unable to get blood pressure on pt. OSIEL wheatley states will notify Shreya NELSON. Pt blood pressure is not reading on monitor at this time either. Pt refusing other vitals be taken.
[2025-01-01 21:14] VITALS: BP 222/118
--- NOTE | 2025-01-01 21:42 | PC.NURSE ---
Pt ambulatory with steady gait to nursing station and verbally states she is leaving. Pt states shes leaving since they are not taking care of me. This RN updated pt that we are waiting to recheck her blood pressure per LESLIE Cash. Pt is not wanting to be seen for her blood pressure because that is not what I came here for. Pt was refusing vital signs. Pt was updated numerous times per LESLIE Cash. Pt eloped at this time.
== END 2025-01-01 21:50 | disposition left against medical advice (07) ==
PROVIDERS: Registered Nurse; Emergency Provider Physician Assistant
DX: S39.012A Strain of muscle, fascia and tendon of lower back, initial encounter (principal); I10 Essential (primary) hypertension; T46.5X6A Underdosing of other antihypertensive drugs, initial encounter; E11.9 Type 2 diabetes mellitus without complications; Z87.891 Personal history of nicotine dependence; M47.816 Spondylosis without myelopathy or radiculopathy, lumbar region; M47.814 Spondylosis without myelopathy or radiculopathy, thoracic region; X58.XXXA Exposure to other specified factors, initial encounter
CPT/HCPCS: 36415; 72128; 72131; 73521; 80053; 81001; 82948; 85025; 87086; 96372; 99284; A9270; J1885; J7512